=== PATIENT | female | born 1965 | race Two or more races ===

== ENCOUNTER 2018-05-05 09:52 | Outpatient (CLI) | payer OTHER | END 2018-05-05 10:25 | disposition home or self-care (01) | LOC: MRI 09:52 | DX: M05.241 Rheumatoid vasculitis with rheumatoid arthritis of right hand (principal); M05.242 Rheumatoid vasculitis with rheumatoid arthritis of left hand | CPT/HCPCS: 73221 ==

== ENCOUNTER 2018-08-27 12:19 | Outpatient (CLI) | payer OTHER | END 2018-08-27 12:26 | disposition home or self-care (01) | LOC: RAD 12:19 | DX: Z01.812 Encounter for preprocedural laboratory examination (principal) ==

== ENCOUNTER → 2018-08-27 12:43 | Outpatient (CLI) | payer OTHER | END | disposition home or self-care (01) | LOC: EKG 12:43 | DX: I10 Essential (primary) hypertension (principal) ==